=== PATIENT | male | born 1985 | race American Indian/Alaskan Native ===

== ENCOUNTER 2017-11-01 12:54 | Emergency (ER) | payer SELFPAY ==
[2017-11-01 13:16] VITALS: BP 131/73
--- NOTE | 2017-11-01 14:39 | Emergency Department Report ---
Blank Doc - Documentation Documentation: Patient refused to be since that he was to go to [place] instead, for insurance purposes.
== END 2017-11-01 14:43 | disposition left against medical advice (07) ==
LOC: ED 12:54
DX: R10.9 Unspecified abdominal pain (principal); Z53.21 Procedure and treatment not carried out due to patient leaving prior to being seen by health care provider